=== PATIENT | male | born 1950 | race Caucasian/White ===

== ENCOUNTER 2021-01-07 09:20 | Outpatient (CLI) | payer BC, MEDICARE, SELFPAY ==
--- NOTE | 2021-01-07 09:30 | ECG_ITS ---
Measurements Intervals [place] Rate: 84 P: 83 [place]: 216 QRS: 11 QRSD: 93 T: 4 QT: 363 QTc: 429 Interpretive Statements SINUS RHYTHM WITH FIRST DEGREE AV BLOCK POOR R WAVE PROGRESSION, CONSIDER ANTERIOR INFARCT CONSIDER INFERIOR INFARCT, AGE INDETERMINATE ABNORMAL ECG Electronically Signed On 01-07-2021 9:51:17 SUBGRADE TESTER by Dylon Catalan D.O.
[2021-01-07 10:20] LABS: INR 1.3; Prothrombin Time 15.9 Seconds (11.1-14.7)
[2021-01-07 10:21] LABS: Partial Thromboplastin Time 29.6 SECONDS (22.3-36.8)
[2021-01-07 10:33] LABS: Anion Gap 7 mmol/L (8-16); Blood Urea Nitrogen 19 mg/dL (9-20); Carbon Dioxide 30 mmol/L (22-30); Chloride 101 mmol/L (98-107); Estimated Glomerular Filt Rate 55; Glucose 94 mg/dL (65-110); Potassium 4.7 mmol/L (3.4-5.0); Sodium 138 mmol/L (137-145)
== END 2021-01-07 09:21 | disposition home or self-care (01) ==
PROVIDERS: Anesthesiology; PCP Family Medicine; Visit Provider Urology
DX: Z01.818 Encounter for other preprocedural examination (principal); N20.0 Calculus of kidney; Z51.81 Encounter for therapeutic drug level monitoring; Z79.899 Other long term (current) drug therapy
CPT/HCPCS: 36415; 80048; 85610; 85730; 87086; 93005

== ENCOUNTER 2021-01-17 01:45 | Day surgery (SDC) | payer BC, MEDICARE, SELFPAY ==
--- NOTE | 2021-01-03 15:24 | PC.NURSE ---
Report to the Outpatient Waiting Room, entrance under the green pavilion located off [facility], at time __729 on date __01/17/21 . OR Time: . - You and your visitor will be asked a series of questions to screen for COVID 19 for your protection. - A mask is required within the hospital. - Only one visitor is allowed at this time. Patient visitors will be guided where to wait when not with patient. Preoperative COVID Testing Requirements: No COVID Test needed if: (proof is required; if not received patient will have Rapid Test prior to entry) - Patient has received COVID Vaccine at least 14 days prior to procedure date or - Patient has positive COVID test result within last 90 days of surgery date. COVID Test needed if above criteria is not met If not COVID vaccinated a COVID test must be conducted within 72 hours of surgery and patient is asked to isolate self from time of testing until procedure. You will go to the [facility] for your COVID testing. The [facility] site is located at the corner of [address] [facility]. You will only be called if COVID results are positive and your surgeon may reschedule your elective surgery date. Patients may have clear liquids (water, carbonated beverages, clear teas, apple juice) until 3 hours prior to surgery with a maximum of 20 ounces. - No food from midnight until time of surgery - Infants may have breast milk until 4 hours before surgery, infant formula 6 hours prior to surgery. - Children will be allowed to drink immediately following surgery. If applicable, please bring a bottle or sippy cup to assist with drinking. Juice, water, soda, and popsicles are readily available. For infants on formula, please bring formula the day of surgery. Pacifiers are allowed. Take the following medications with a SIP of water the morning of surgery: _CARVEDILOL Medications to discontinue per physician ___ASPIRIN AND ELIQUIS PER DR SANTIAGO Date to take last dose Please no make-up, nail latvian, hairspray, perfume, deodorant, or body powder the day of surgery. No jewelry (including any body piercings) or valuables the day of surgery, leave them at home. Please take a shower or bath the night before, or the morning of, surgery with an antibacterial soap. Wear comfortable, loose fitting clothing. Children are encouraged to wear pajamas. - Jewelry must be removed prior to entering the operating room. Rings and piercings that are not removed may be cut off. - The hospital will not accept responsibility for valuables. - Please leave all valuables, including medications, at home the day of surgery. If you are going home after surgery, a licensed team truck driver must drive you home. - NO public transportation without another adult. - We recommend that an adult stay with you for 24 hours following discharge. - We also recommend that you do not drive, make important decision, drink alcoholic beverages, or take any drugs that were not prescribed by your health care provider for at least 24 hours after your discharge time. Follow any additional instructions given to you from your surgeon. Telephone instructions given to PATIENT and asked if any additional questions and then verbalized understanding. Patient advised to call surgeon office or pre surgery nurse liaison [phone] if any additional questions.
[2021-01-03 15:33] VITALS: BMI 40.6
--- NOTE | 2021-01-16 12:49 | P.PNAN_ITS ---
Anes - Initial Pre Proc Eval Procedure: Operation Date: 01/17/21 08:30 Proposed Procedures p Left Extracorporeal Shock Wave Lithotripsy - Eddie Alonso MD s Cystoscopy, Left Stent Placement - Eddie Alonso MD Date/Time: 01/16/21 12:49 Surgeon: Eddie Alonso MD Pre Op Diagnosis: left kidney stone Patient Data Age: 70 Gender: M Height: 1.83 m Weight: 136.1 kg Allergies Allergy/AdvReac Type Severity Reaction Status Date / Time cephalexin [From Keflex] AdvReac Severe Hives Verified 01/17/21 07:00 Home Medications Medication Instructions Recorded Confirmed Type apixaban [Eliquis] 5 mg PO BID 01/03/21 01/03/21 History atorvastatin 80 mg PO DAILY 01/03/21 01/03/21 History carvedilol 12.5 mg PO BID 01/03/21 01/03/21 History dulaglutide [Trulicity] 1.5 mg SUBCUT WEEKLY 01/03/21 01/03/21 History mirabegron [Myrbetriq] 25 mg PO DAILY 01/03/21 01/03/21 History montelukast 10 mg PO DAILY 01/03/21 01/03/21 History Patient hx anesthesia problems: none Family hx anesthesia problems: none Results Review: All pre-operative results and documents have been reviewed as part of the pre-operative evaluation. [facility] Past Medical History Medical History (Updated 01/16/21 @ 12:50 by Luis Tee DO) Asthma Atrial fibrillation COPD (chronic obstructive pulmonary disease) Diabetes type 2, controlled History of heart attack 2010 Hyperlipidemia Hypertension Surgical History Surgical History (Updated 01/16/21 @ 12:50 by Luis Tee DO) History of total knee replacement right Social History Social History Smoking packs per day: 2 Smoking cigarettes per day: 40.0 Years smoked: 50 Smoking pack-years: 100.00 Smoking status: Former smoker Tobacco type: cigarettes Smoking end date: 02/15/17 Alcohol intake: current Drinks per week: 2 Substance use: current Substance use type: marijuana Last use: Living arrangements: with family Spiritual care concerns: No Anes - Eval Final PreProcedure Day of Procedure 01/16/21 12:49 Patient weight: morbidly obese Heart: regular rate and rhythm Lungs: clear to auscultation and normal air movement Airway: Mallampati scale class II Neurological: alert and oriented Last oral intake: >/= 8 hours ASA classification: III Emergent: no Anesthetic plan: proceed Anesthesia type and monitoring: general LMA and standard monitoring Results Review: All pre-operative results and documents have been reviewed as part of the pre-operative evaluation. Informed Consent: The patient's anesthetic plan and its attendant risks and benefits were discussed with the patient/family/POA. Questions were solicited and answers provided to the satisfaction of the patient/family/POA.
--- NOTE | ~2021-01-17 | XR_ITS ---
EXAMINATION: XR abdomen/kub 1V DATE: 01/17/2021 06:43 INDICATION: Nephrolithiasis for planned shockwave lithotripsy. TECHNIQUE: A supine view of the abdomen on 2 radiographs was obtained. COMPARISON: None. FINDINGS: 9 mm stone in the mid left ureter which projects over the left L5 transverse process. No other nephro lithiasis. Normal bowel gas pattern. Severe lower lumbar spondylosis. Partially visualized left total hip arthroplasty. IMPRESSION: 1. 9 mm mid left ureteral stone. Reviewed, dictated and finalized at location A. PING TECHNICIAN
--- NOTE | 2021-01-17 06:56 | WPDHPUPDATE1 ---
History and Physical Update Update Date/Time: 01/17/21 06:56 History and Physical has been reviewed, including an updated exam of the patient. There are NO changes in the patient's condition. Risks, benefits, and alternatives have been discussed and questions answered. Patient agrees to proceed with procedure.
[2021-01-17] MEDS: LACTATED RINGERS 1,000 ML 30 ML IV CONT (07:29)
[2021-01-17 07:34] VITALS: BP 162/86; PULSE 92; RESP 16; TEMP 36.6; O2SAT 96
[2021-01-17 07:34] LABS: Glucose Point of Care 88 mg/dl (65-105)
[2021-01-17 08:05] LABS: INR 1.1; Prothrombin Time 13.7 Seconds (11.1-14.7)
[2021-01-17 08:06] LABS: Partial Thromboplastin Time 26.7 SECONDS (22.3-36.8)
[2021-01-17] MEDS: levoFLOXacin 500 MG/D5W 100 ML 500 MG/100 ML BAG 100 MG IVPB (08:19)
--- NOTE | 2021-01-17 09:01 | W.PM.PROC2 ---
Procedure Note - Detailed Date of Procedure 01/17/21 Pre-op Diagnosis Left ureteral stone Post-op Diagnosis same Procedure Performed Left ESWL Surgeon Eddie Alonso MD Anesthesia general Description of Procedure The patient was brought to the operative suite where she was placed in the supine position on the Dornier lithotripsy table. The focal point of the lithotripter was placed at a 9mm left mid-ureteral calculus. A total of 3000 shocks were delivered at a power setting of 6. There appeared to be good fragmentation of the stone. The patient tolerated the procedure well and was taken to the recovery room in good condition. Drains No Packing No Pathology none sent Complications No immediate complications Condition stable Disposition PACU
[2021-01-17 09:12] VITALS: BP 105/70; PULSE 87; RESP 12; TEMP 36.3; O2SAT 99
[2021-01-17 09:25] VITALS: BP 121/60; PULSE 88; RESP 16; O2SAT 96
[2021-01-17 09:29] LABS: Glucose Point of Care 84 mg/dl (65-105)
[2021-01-17 09:40] VITALS: BP 152/78; PULSE 87; RESP 20
[2021-01-17 10:04] VITALS: BP 140/81; PULSE 85; RESP 16
== END 2021-01-17 10:15 | disposition home or self-care (01) ==
PROVIDERS: PCP Family Medicine; Visit Provider Urology
PROC: (CPT 50590; principal; 2021-01-17 08:30)
DX: N20.2 Calculus of kidney with calculus of ureter (principal); N32.81 Overactive bladder; N62 Hypertrophy of breast; R35.0 Frequency of micturition; N40.1 Benign prostatic hyperplasia with lower urinary tract symptoms; J44.9 Chronic obstructive pulmonary disease, unspecified; E78.00 Pure hypercholesterolemia, unspecified; I25.2 Old myocardial infarction; Z79.01 Long term (current) use of anticoagulants; Z79.82 Long term (current) use of aspirin; I48.91 Unspecified atrial fibrillation; J45.909 Unspecified asthma, uncomplicated; E78.5 Hyperlipidemia, unspecified; Z87.891 Personal history of nicotine dependence; F12.90 Cannabis use, unspecified, uncomplicated; E66.01 Morbid (severe) obesity due to excess calories; Z68.41 Body mass index [BMI] 40.0-44.9, adult
CPT/HCPCS: 50590; 36415; 74018; 82948; 85610; 85730; A9270; J1100; J1956; J2405; J2704; J3010; J7030; J7120

== ENCOUNTER 2021-02-07 10:57 | Outpatient (CLI) | payer BC, MEDICARE, SELFPAY ==
--- NOTE | ~2021-02-07 | XR_ITS ---
. EXAMINATION: XR abdomen/kub 1V DATE: 02/07/2021 11:15 INDICATION: Left ureteral stone. TECHNIQUE: A supine view of the abdomen on 2 radiographs was obtained. COMPARISON: Abdomen radiographs 01/17/2021 FINDINGS: There are no dilated loops of bowel. There is a total left hip arthroplasty in near-anatomi c alignment. A calcification in left pelvis is likely phlebolith. IMPRESSION: 1. No visible urolithiasis. Reviewed, dictated and finalized at location A. DENTIAL DOOR INSTALLER IMPRESSION: 1. No visible urolithiasis.
== END 2021-02-07 10:58 | disposition home or self-care (01) ==
LOC: ANHIMG 11:00
PROVIDERS: Visit Provider Urology
DX: N20.1 Calculus of ureter (principal)
CPT/HCPCS: 74018

== ENCOUNTER 2021-05-15 07:36 | Outpatient (CLI) | payer BC, MEDICARE, SELFPAY ==
[2021-05-15 08:11] LABS: Anion Gap 5 mmol/L (8-16); Blood Urea Nitrogen 21 mg/dL (9-20); Calcium 9.1 mg/dL (8.4-10.2); Carbon Dioxide 34 mmol/L (22-30); Chloride 101 mmol/L (98-107); Estimated Glomerular Filt Rate 60; Glucose 101 mg/dL (65-110); Sodium 140 mmol/L (137-145)
== END 2021-05-15 07:37 | disposition home or self-care (01) ==
LOC: ANHSURGERY 07:40
PROVIDERS: Anesthesiology; PCP Family Medicine; Visit Provider Urology
DX: Z01.818 Encounter for other preprocedural examination (principal); E11.9 Type 2 diabetes mellitus without complications; N40.0 Benign prostatic hyperplasia without lower urinary tract symptoms
CPT/HCPCS: 36415; 80048; 87086; 87088

== ENCOUNTER 2021-05-27 00:31 | Day surgery (SDC) | payer BC, MEDICARE, SELFPAY ==
[2021-05-13 09:50] VITALS: BMI 40.1
--- NOTE | 2021-05-13 10:08 | PC.NURSE ---
Report to the Outpatient Waiting Room, entrance under the green pavilion located off [facility], at time _0600_ on date _05/27/21_. OR Time: _0730_. - You and your visitor will be asked a series of questions to screen for COVID 19 for your protection. - A mask is required within the hospital. One visitor will be allowed to accompany the patient into the hospital. Patients visitor will be instructed to remain with patient at all times or leave the building. We will allow the visitor to come back to the postoperative area when patient is ready. Preoperative COVID Testing Requirements: NONE Patients may have clear liquids (water, carbonated beverages, clear teas, apple juice) until 3 hours prior to surgery (0430 AM) with a maximum of 20 ounces. - No food from midnight until time of surgery Take the following medications with a SIP of water the morning of surgery: _CARVEDILOL__ Medications to discontinue _ELIQUIS PER DR. SCOTT'S INSTRUCTIONS Please no deodorant, or body powder the day of surgery. No jewelry (including any body piercings) or valuables the day of surgery, leave them at home. Please take a shower or bath the night before, or the morning of, surgery with an antibacterial soap. Wear comfortable, loose fitting clothing. - Jewelry must be removed prior to entering the operating room. Rings and piercings that are not removed may be cut off. - The hospital will not accept responsibility for valuables. - Please leave all valuables, including medications, at home the day of surgery. If you are going home after surgery, a licensed regional otr company driver must drive you home. - NO public transportation without another adult. - We recommend that an adult stay with you for 24 hours following discharge. - We also recommend that you do not drive, make important decision, drink alcoholic beverages, or take any drugs that were not prescribed by your health care provider for at least 24 hours after your discharge time. Follow any additional instructions given to you from your surgeon. Telephone instructions given to ___PT and asked if any additional questions and then verbalized understanding. Patient advised to call surgeon office or pre surgery nurse liaLISA thompson [phone] if any additional questions.
[2021-05-27] VITALS (7 sets, daily range): BP systolic 105–145; BP diastolic 62–80; PULSE 78–90; RESP 14–17; TEMP 36.1–36.3; O2SAT 94–100
[2021-05-27] MEDS: LACTATED RINGERS 1,000 ML 30 ML IV CONT (06:50)
--- NOTE | 2021-05-27 06:51 | WPDANESEPPF ---
Anes - Initial Pre Proc Eval Procedure: Operation Date: 05/27/21 07:30 Proposed Procedures p Urolift - Festus Hemphill MD Date/Time: 05/27/21 06:51 Surgeon: Festus Hemphill MD Pre Op Diagnosis: bph Patient Data Age: 70 Gender: M Height: 1.83 m Weight: 133.8 kg Last Vital Signs Temp 36.3 C L 05/27/21 06:06 Pulse 90 05/27/21 06:06 Resp 16 05/27/21 06:06 BP 145/74 H 05/27/21 06:06 Pulse Ox 97 05/27/21 06:06 Allergies Allergy/AdvReac Type Severity Reaction Status Date / Time cephalexin [From Keflex] AdvReac Severe Hives Verified 05/27/21 06:15 Home Medications Medication Instructions Recorded Confirmed Type Eliquis 5 mg PO BID 01/03/21 05/27/21 History Myrbetriq 25 mg PO DAILY 01/03/21 05/27/21 History Trulicity 1.5 mg SUBCUT WEEKLY 01/03/21 05/27/21 History atorvastatin 80 mg PO HS 01/03/21 05/27/21 History carvedilol 12.5 mg PO BID 01/03/21 05/13/21 History montelukast 10 mg PO HS 01/03/21 05/27/21 History Patient hx anesthesia problems: none Family hx anesthesia problems: none Results Review: All pre-operative results and documents have been reviewed as part of the pre-operative evaluation. [facility] Past Medical History Medical History Asthma Atrial fibrillation COPD (chronic obstructive pulmonary disease) Diabetes type 2, controlled History of heart attack 2010 Hyperlipidemia Hypertension Surgical History Surgical History History of total knee replacement right Social History Social History Smoking packs per day: 2 Smoking cigarettes per day: 40.0 Years smoked: 50 Smoking pack-years: 100.00 Smoking status: Former smoker Tobacco type: cigarettes Second hand tobacco smoke exposure: No Smoking end date: 02/15/17 Alcohol intake: current Drinks per week: 2 Substance use: current Substance use type: marijuana Last use: 04/22/21 Living arrangements: with family Spiritual care concerns: No Anes - Eval Final PreProcedure Day of Procedure 05/27/21 06:51 Patient weight: morbidly obese Heart: regular rate and rhythm Lungs: clear to auscultation Airway: Mallampati scale class III Neurological: alert and oriented Last oral intake: >/= 8 hours ASA classification: IV Emergent: no Anesthetic plan: proceed Anesthesia type and monitoring: general LMA and standard monitoring Results Review: All pre-operative results and documents have been reviewed as part of the pre-operative evaluation. Informed Consent: The patient's anesthetic plan and its attendant risks and benefits were discussed with the patient/family/POA. Questions were solicited and answers provided to the satisfaction of the patient/family/POA.
[2021-05-27 06:56] LABS: Glucose Point of Care 98 mg/dl (65-105)
--- NOTE | 2021-05-27 07:31 | WPDHPUPDATE1 ---
History and Physical Update Update Date/Time: 05/27/21 07:31 History and Physical has been reviewed, including an updated exam of the patient. There are NO changes in the patient's condition. Risks, benefits, and alternatives have been discussed and questions answered. Patient agrees to proceed with procedure.
[2021-05-27] MEDS: levoFLOXacin 500 MG/D5W 100 ML 500 MG/100 ML BAG 100 MG IVPB (07:35)
[2021-05-27] MEDS: LIDOCAINE HCL 2% GEL UROJET 10 ML PKG MUCOUS MEM (07:57)
--- NOTE | 2021-05-27 08:06 | P.OP_ITS ---
Procedure Note - Detailed Date of Procedure 05/27/21 Pre-op Diagnosis bph Post-op Diagnosis Same Procedure Performed UroLift with 4 gayle, urethral dilation Surgeon Festus Hemphill MD Anesthesia General Description of Procedure Patient is taken to the operative suite correctly identified. Once anesthesia was obtained he was placed in dorsal lithotomy position and prepped and draped usual sterile fashion. The meatus was slightly tight and thus we dilated using male sounds up to 28 [place]. Urolift scope was placed into the bladder under direct vision. Bladder is inspected there is no tumors noted. The prostate is somewhat short in nature. We went ahead and placed the 1st staple at the 9 o'cl ock position sort of in the mid prostate. Similar gayle placed on the left side at the 3 o'clock position. We then placed our 2 remaining gayle at the 10 and 2:00 a.m. positions. Patient had open prostatic fossa. Inspection of the bladder with a flexible scope did not reveal any gayle in the bladder. 2% viscous lidocaine was inserted urethra patient is taken recovery stable condition. Estimated Blood Loss 0 Drains No Packing No Pathology None sent Complications No immediate complications Condition Stable Disposition PACU
[2021-05-27 08:19] LABS: Glucose Point of Care 96 mg/dl (65-105)
== END 2021-05-27 09:30 | disposition home or self-care (01) ==
PROVIDERS: PCP Family Medicine; Visit Provider Urology
PROC: 0T7D8DZ Dilation of Urethra with Intraluminal Device, Via Natural or Artificial Opening Endoscopic (ICD-10-PCS; CPT 52441; principal; 2021-05-27 07:30)
DX: N40.1 Benign prostatic hyperplasia with lower urinary tract symptoms (principal); R35.0 Frequency of micturition; R39.15 Urgency of urination; R35.1 Nocturia; Z79.01 Long term (current) use of anticoagulants; J45.909 Unspecified asthma, uncomplicated; J44.9 Chronic obstructive pulmonary disease, unspecified; E11.9 Type 2 diabetes mellitus without complications; I10 Essential (primary) hypertension; E78.5 Hyperlipidemia, unspecified; I25.2 Old myocardial infarction; I48.91 Unspecified atrial fibrillation; Z87.891 Personal history of nicotine dependence; F12.90 Cannabis use, unspecified, uncomplicated; E66.01 Morbid (severe) obesity due to excess calories; Z68.41 Body mass index [BMI] 40.0-44.9, adult; Z79.82 Long term (current) use of aspirin
CPT/HCPCS: C9740; 82948; J1100; J1956; J2405; J2704; J3010; J7120; L8699

== ENCOUNTER 2022-05-22 09:07 | Outpatient (CLI) | payer MEDICARE, SELFPAY ==
--- NOTE | ~2022-05-22 | NM_ITS ---
EXAMINATION: NM bone scan whole body DATE: 05/22/2022 14:34 INDICATION: Prostate cancer TECHNIQUE: 25 mCi Tc-99m HDP was administered intravenously. Delayed whole-body scintigrams were obt ained. COMPARISON: KUB dated . No more recent prior imaging. FINDINGS: Photopenic defect at the left hip corresponding to a total hip arthroplasty. Additional photopenic de fect corresponding to a right total knee arthroplasty. Small amount of increased uptake underlying th e tibial tray remains within normal limits. Likely degenerative joint centered uptake at the bilatera l acromioclavicular joints, right greater than left, at the left elbow, visualized portions of the bi lateral hands, left knee with medial compartment predominance at multiple joints of the bilateral fee t and ankles. There is some minimal likely degenerative uptake such with severe bilateral lower lumba r facet osteoarthritis. No other suspicious foci of abnormal bone uptake to suggest metastatic diseas e. IMPRESSION: 1. No lesion suspicious for metastatic disease. Reviewed, dictated and finalized at location B.
== END 2022-05-22 09:08 | disposition home or self-care (01) ==
LOC: ANHIMG 09:12
PROVIDERS: Visit Provider Urology
DX: C61 Malignant neoplasm of prostate (principal)
CPT/HCPCS: 78306; A9503

== ENCOUNTER 2023-02-16 08:48 | Outpatient (CLI) | payer MEDICARE, SELFPAY ==
--- NOTE | ~2023-02-16 | XR_ITS ---
Left Knee Technique: AP, lateral, and sunrise views were obtained. Clinical History: Pain Findings: No fracture or dislocation is seen. There is mild medial compartment narrowing, with mild t o moderate tricompartmental degenerative spurring. Soft tissues are unremarkable. No joint effusion i s seen. Impression: Tricompartmental moderate degenerative change, as detailed above. Reviewed, dictated and finalized at location . RUCTIONAL SERVICES SPECIALIST Impression: Tricompartmental moderate degenerative change, as detailed above.
== END 2023-02-16 08:49 | disposition home or self-care (01) ==
PROVIDERS: Visit Provider Orthopaedic Surgery
DX: M25.562 Pain in left knee (principal)
CPT/HCPCS: 73564